=== PATIENT | female | born 1990 | race Caucasian/White ===

== ENCOUNTER 2017-02-25 21:02 | Emergency (ER) | payer MEDICAID ==
[2017-02-25 21:16] VITALS: PULSE 68; TEMP 98
[2017-02-25] MEDS ORDERED: Alum-Mag Hydrox-Simethicone Susp (30 mL) PO STA (21:18)
--- NOTE | 2017-02-25 21:48 | ED PDOC ---
Arrival/HPI - General Chief Complaint: Abdominal Pain Time Seen by Provider: 02/25/17 21:15 Historian: Patient - History of Present Illness Narrative History of Present Illness (Text): 02/25/17 21:30 Patient is a 27 year old female whose past medical history includes asthma, presents to the emergency department with intermittent bilateral abdominal pain for the past 6 weeks. She reports that she thinks it is associated with constipation because the feeling is gassy, is worsened by eating, and she feels better after bowel movements. She is also complaining of some intermittent epigastric pain that last happened this evening. She cannot identify any exacerbating or remitting factors. She denies shortness of breath. She denies vomiting, diarrhea, vaginal bleeding, vaginal discharge or dysuria. Time/Duration: > week Symptom Onset: Gradual Symptom Course: Intermittent Modifying Factors (Text): None Associated Symptoms (Text): None Past Medical History - Provider Review Nursing Documentation Reviewed: Yes - Cardiac Hx Cardiac Disorders: No - Pulmonary Hx Asthma: Yes - Neurological Hx Neurological Disorder: No - HEENT Hx HEENT Disorder: No - Renal Hx Renal Disorder: No - Endocrine/Metabolic Hx Endocrine Disorders: No - Hematological/Oncological Hx Blood Disorders: No - Integumentary Hx Dermatological Disorder: No - Musculoskeletal/Rheumatological Hx Musculoskeletal Disorders: No - Gastrointestinal Hx Gastrointestinal Disorders: No - Genitourinary/Gynecological Hx Genitourinary Disorders: No - Psychiatric Hx Psychophysiologic Disorder: No Hx Substance Use: No Family/Social History - Physician Review Nursing Documentation Reviewed: Yes Family/Social History: Unknown Family HX Smoking Status: Never Smoked Hx Alcohol Use: No Hx Substance Use: No Allergies/Home Meds Allergies/Adverse Reactions: Allergies No Known Allergies Allergy (Verified 02/25/17 21:09) Home Medications: Home Meds Medication Instructions Recorded Confirmed No Known Home Med 02/25/17 02/25/17 Review of Systems - Review of Systems Eyes: absent: Vision Changes ENT: absent: Hearing Changes Respiratory: absent: SOB, Cough, Sputum, Wheezing Cardiovascular: Chest Pain (epigastric pain). absent: Palpitations Gastrointestinal: Abdominal Pain, Constipation. absent: Diarrhea, Nausea, Vomiting Genitourinary Female: absent: Dysuria, Frequency, Hematuria, Urine Output Changes, Vaginal Bleeding, Vaginal Discharge Musculoskeletal: absent: Back Pain Skin: absent: Rash Neurological: absent: Headache, Dizziness Endocrine: absent: Diaphoresis Psychiatric: absent: Depression Physical Exam Vital Signs Reviewed: Yes Vital Signs Temp Pulse Resp BP Pulse Ox 02/25/17 22:42 20 98/67 L 99 02/25/17 21:13 98.0 F 68 16 100/60 97 Temperature: Afebrile Blood Pressure: Normal Pulse: Regular Respiratory Rate: Normal Appearance: Positive for: Well-Appearing, Non-Toxic, Comfortable Pain Distress: None Mental Status: Positive for: Alert and Oriented X 3 - Systems Exam Head: Present: Atraumatic, Normocephalic Pupils: Present: PERRL Extroacular Muscles: Present: EOMI Conjunctiva: Present: Normal Mouth: Present: Moist Mucous Membranes Neck: Present: Normal Range of Motion Respiratory/Chest: Present: Clear to Auscultation, Good Air Exchange. No: Respiratory Distress, Accessory Muscle Use Cardiovascular: Present: Regular Rate and Rhythm, Normal S1, S2. No: Murmurs Abdomen: Present: Normal Bowel Sounds. No: Tenderness, Distention, Peritoneal Signs Back: Present: Normal Inspection Upper Extremity: Present: Normal Inspection. No: Cyanosis, Edema Lower Extremity: Present: Normal Inspection. No: Edema Neurological: Present: GCS=15, CN II-XII Intact, Speech Normal Skin: Present: Warm, Dry, Normal Color. No: Rashes Psychiatric: Present: Alert, Oriented x 3, Normal Insight, Normal Concentration Medical Decision Making ED Course and Treatment: Impression: Patient is a 27 year old female presenting to the emergency department with intermittent bilateral abdominal pain for the past 6 weeks that is relieved by bowel movements. No prior abdominal surgeries. Soft NT/ND abdomen on exam. I explained to the patient the importance of following up with GI for endoscopy and colonoscopy if negative ED workup Differential Diagnosis include but are not limited to: Peptic ulcer disease vs GERD vs constipation vs pancreatitis Plan: -- EKG -- Maalox, Pepcid -- Labs -- Reassess and disposition Progress Notes: 02/25/17 22:20 EKG shows NSR at 61bpm with sinus arrhythmia. QTc:414. No ST changes 02/25/17 22:43 Labs WNL. Patient is well appearing. Patient is not and has no dysuria. Will dc - Lab Interpretations Lab Results: 02/25/17 21:53 02/25/17 21:53 Lab Results 02/25/17 21:53: Sodium 138, Potassium 4.4, Chloride 99, Carbon Dioxide 29, Anion Gap 14, BUN 14, Creatinine 0.8, Est GFR ( Amer) > 60, Est GFR (Non- Af Amer) > 60, Random Glucose 92, Calcium 9.4, Phosphorus 4.3, Magnesium 2.2, Total Bilirubin 0.5, AST 26, ALT 20, Alkaline Phosphatase 58, Total Protein 8.2 , Albumin 4.3, Globulin 3.9, Albumin/Globulin Ratio 1.1, Lipase 73 02/25/17 21:53: WBC 6.8, RBC 4.44, Hgb 13.4, Hct 38.4, MCV 86.5, MCH 30.2, MCHC 34.9, RDW 11.8, Plt Count 250, MPV 11.7 H, Gran % 47.7 L, Lymph % (Auto) 38.9 H , Carroll % (Auto) 7.8 H, Eos % (Auto) 5.0, Baso % (Auto) 0.6, Gran # 3.25, Lymph # 2.7, Carroll # 0.5, Eos # 0.3, Baso # 0.04 02/25/17 21:35: Urine Color Light yellow, Urine Appearance Sl cloudy, Urine pH 8.0, Ur Specific [place] 1.015, Urine Protein Negative, Urine Glucose (UA) Negative, Urine Ketones Negative, Urine Blood Negative, Urine Nitrate Negative, Urine Bilirubin Negative, Urine Urobilinogen 0.2, Ur Leukocyte Esterase Small H , Urine RBC Negative, Urine WBC 1 - 3, Ur Epithelial Cells 4 - 5, Urine Bacteria Mod - Medication Orders Current Medication Orders: Discontinued Medications Al Hydrox/Mg Hydrox/Simethicone (Maalox Plus 30 Ml) 30 ml PO STAT STA Stop: 02/25/17 21:19 Last Admin: 02/25/17 22:00 Dose: 30 ml Famotidine (Pepcid) 20 mg IVP STAT STA Stop: 02/25/17 21:18 Last Admin: 02/25/17 22:00 Dose: 20 mg - Scribe Statement The provider has reviewed the documentation as recorded by the Princess Mckeon Provider Scribe Attestation: All medical record entries made by the Princess were at my direction and personally dictated by me. I have reviewed the chart and agree that the record accurately reflects my personal performance of the history, physical exam, medical decision making, and the department course for this patient. I have also personally directed, reviewed, and agree with the discharge instructions and disposition. Disposition/Present on Arrival - Present on Arrival Any Indicators Present on Arrival: No History of DVT/PE: No History of Uncontrolled Diabetes: No Urinary Catheter: No History of Decub. Ulcer: No History Surgical Site Infection Following: None - Disposition Have Diagnosis and Disposition been Completed?: Yes Diagnosis: Epigastric pain Disposition Time: 22:40 Patient Plan: Discharge Patient Problems: Current Active Problems Problem Status Onset Epigastric pain Acute Condition: GOOD Discharge Instructions (ExitCare): High Fiber Diet (ED), Epigastric Pain (ED) Additional Instructions: Follow-up with PMD within 2 days. Follow-up with GI for further evaluation of abdominal pain and constipation. Return to ED if condition worsens. Referrals: Ronald HICKMAN,MD Juan [Medical Doctor] - Follow up with primary
[2017-02-25 22:03] LABS: URINE BILIRUBIN NEGATIVE (NEGATIVE); URINE BLOOD NEGATIVE (NEGATIVE); URINE GLUCOSE (UA) NEGATIVE (NEGATIVE); URINE KETONE NEGATIVE (NEGATIVE); URINE LEUKOCYTE ESTERASE SMALL Leu/uL (NEGATIVE); URINE PROTEIN NEGATIVE mg/dL (<30 mg/dL); URINE UROBILINOGEN 0.2 E.U./dL (<1 E.U./dL)
[2017-02-25 22:04] LABS: ADD MANUAL DIFF? NO
[2017-02-25 22:05] LABS: URINE APPEARANCE SL CLOUDY (CLEAR); URINE COLOR LIGHT YELLOW (YELLOW)
[2017-02-25 22:09] LABS: BASO # 0.04 K/mm3 (0.0-2.0); BASO % 0.6 % (0.0-3.0); EOS # 0.3 (0.0-0.7); GRAN # 3.25 (1.4-6.5); GRAN % 47.7 % (50.0-68.0); HEMATOCRIT 38.4 % (36.0-48.0); LYMPH # 2.7 (1.2-3.4); LYMPH % 38.9 % (22.0-35.0); MEAN CELL VOLUME 86.5 fL (80.0-105.0); MEAN CORPUSCULAR HEMOGLOBIN 30.2 pg (25.0-35.0); MEAN CORPUSCULAR HGB CONC 34.9 g/dl (31.0-37.0); MEAN PLATELET VOLUME 11.7 fl (7.0-11.0); MONO # 0.5 (0.1-0.6); MONO % 7.8 % (1.0-6.0); PLATELET COUNT 250 10^3/uL (120.0-450.0); RED CELL DISTRIBUTION WIDTH 11.8 % (11.5-14.5); WHITE BLOOD COUNT 6.8 10^3/ul (4.5-11.0)
[2017-02-25 22:12] LABS: URINE BACTERIA MOD (NEG); URINE RBC NEGATIVE /hpf (0-2)
[2017-02-25 22:49] VITALS: BP 98/67; RESP 20; O2SAT 99
[2017-02-25 22:57] LABS: ALB/GLOB RATIO 1.1 (1.1-1.8); ALKALINE PHOSPHATASE 58 U/L (38-133); ALT/SGPT 20 U/L (7-56); AST/SGOT 26 U/L (15-39); BILIRUBIN,TOTAL 0.5 mg/dL (0.2-1.3); BLOOD UREA NITROGEN 14 mg/dL (7-21); CALCIUM 9.4 mg/dL (8.4-10.5); CARBON DIOXIDE 29 mmol/L (21-33); CHLORIDE 99 mmol/L (98-107); GFR AFRICAN-AMERICAN > 60; GLUCOSE,RANDOM 92 mg/dL (70-110); LIPASE 73 U/L (23-300); MAGNESIUM 2.2 mg/dL (1.7-2.2); PHOSPHOROUS 4.3 mg/dL (2.5-4.5); POTASSIUM 4.4 mmol/L (3.6-5.0); SODIUM 138 mmol/L (132-148); TOTAL PROTEIN 8.2 g/dL (5.8-8.3)
--- NOTE | 2017-02-26 15:36 | CARD ---
APPROVED REPORT EKG Measurement Heart [id number] <Conclusion> Normal sinus rhythm with sinus arrhythmia Normal ECG
== END 2017-02-25 23:07 | disposition home or self-care (01) ==
LOC: ED 21:02
DX: R10.13 Epigastric pain (principal)